=== PATIENT | male | born 1990 | race Caucasian/White ===

== ENCOUNTER 2017-10-16 20:52 | Emergency (ER) | payer OTHER ==
[~2017-10-16] VITALS: Ht 182.9 cm; Wt 99.8 kg
[~2017-10-16 20:52] MED LIST: ACETAMINOPHEN-1 EAC1 PO; AMOXICILLIN 50500 MG PO; CLEOCIN HCL150 MG PO; CYCLOBENZAPRINE5 MG PO; FLEXERIL PO; GENTAMICIN SU3 MG/ML OPHTHALMIC; HYDROCODON-ACE1 EAC7 PO; HYDROCODONE-AP1 EAC6 PO; HYDROCODONE-APA1 TA1 PO; IBUPROFEN 800800 M1 PO; IBUPROFEN 800800 MG PO; LIDOCAINE VISC100 M1 PO; LIDOCAINE VISC100 M1 SWISH&SPIT; LIDOCAINE VISC100 ML SWISH&SPIT; MEDROLDOSEPACK PO; NAPROSYN500 MG PO; NOHOMEMEDICATIONS; NORCO 5-325 TA1 EAC1 PO; NORCO 5-325 TA1 EACH PO; PENICILLIN VK500 MG PO; PREDNISONE 20 M20 MG PO; PREDNISONE50 MG PO; ROBAXIN 750 MG750 M1 PO; ROBAXIN500 MG PO; TORADOL 10 MG T10 MG PO; TYLENOL WITH CO1 TA1 PO
[2017-10-16] MEDS ORDERED: IBUPROFEN 600600 M1 PO (22:27)
[2017-10-16 22:33] VITALS: BP 150/92
== END 2017-10-16 22:34 | disposition home or self-care (01) ==
LOC: M.ERS 20:52
DX: M25.532 Pain in left wrist (principal); Z88.6 Allergy status to analgesic agent

== ENCOUNTER 2017-12-01 10:32 | Emergency (ER) | payer OTHER ==
[~2017-12-01] VITALS: Ht 182.9 cm; Wt 108.9 kg
[~2017-12-01 10:32] MED LIST changes: +IBUPROFEN 600600 M1 PO
[2017-12-01] MEDS ORDERED: BACTRIM DS TAB1 EACH PO (11:38)
[2017-12-01 12:07] VITALS: BP 123/74
== END 2017-12-01 12:09 | disposition home or self-care (01) ==
LOC: M.ERS 10:32
DX: S60.221A Contusion of right hand, initial encounter (principal); L02.511 Cutaneous abscess of right hand; L03.113 Cellulitis of right upper limb; Z88.6 Allergy status to analgesic agent; X58.XXXA Exposure to other specified factors, initial encounter; Y93.89 Activity, other specified; Y92.89 Other specified places as the place of occurrence of the external cause; Y99.8 Other external cause status

== ENCOUNTER 2018-05-21 16:24 | Emergency (ER) | payer OTHER ==
[~2018-05-21] VITALS: Ht 182.9 cm; Wt 104.3 kg
[~2018-05-21 16:24] MED LIST changes: +BACTRIM DS TAB1 EACH PO
[2018-05-21] MEDS ORDERED: ACETAMINOPHEN-1 EAC1 PO (17:19)
[2018-05-21] MEDS ORDERED: LIDOCAINE VISC100 ML SWISH&SPIT (17:19)
[2018-05-21] MEDS ORDERED: AMOXICILLIN 50500 MG PO (17:19)
[2018-05-21 17:25] VITALS: BP 140/75
== END 2018-05-21 17:27 | disposition home or self-care (01) ==
LOC: M.ERS 16:24
DX: K04.7 Periapical abscess without sinus (principal); Z88.8 Allergy status to other drugs, medicaments and biological substances

== ENCOUNTER 2018-07-28 22:16 | Emergency (ER) | payer BC ==
[~2018-07-28] VITALS: Ht 182.9 cm; Wt 104.3 kg
[2018-07-28 22:24] VITALS: BP 140/76
[2018-07-28] MEDS ORDERED: AMOXIL 875 MG875 M1 PO (22:34)
[2018-07-28] MEDS ORDERED: IBUPROFEN 800800 M1 PO (22:38)
== END 2018-07-28 22:43 | disposition home or self-care (01) ==
LOC: M.ERS 22:16
DX: K04.7 Periapical abscess without sinus (principal); Z88.8 Allergy status to other drugs, medicaments and biological substances

== ENCOUNTER 2019-01-11 23:06 | Emergency (ER) | payer OTHER ==
[~2019-01-11] VITALS: Ht 182.9 cm; Wt 104.3 kg
[~2019-01-11 23:06] MED LIST changes: +AMOXIL 875 MG875 M1 PO
[2019-01-11 23:11] VITALS: BP 135/60
[2019-01-11] MEDS ORDERED: PENICILLIN VK500 M1 PO (23:33)
[2019-01-11] MEDS ORDERED: PERIDEX15 ML SWISH&SPIT (23:33)
[2019-01-11] MEDS ORDERED: IBUPROFEN 800800 M1 PO (23:33)
== END 2019-01-11 23:48 | disposition home or self-care (01) ==
LOC: M.ERS 23:06
DX: K05.10 Chronic gingivitis, plaque induced (principal); K08.9 Disorder of teeth and supporting structures, unspecified; Z88.6 Allergy status to analgesic agent

== ENCOUNTER 2019-04-10 02:06 | Emergency (ER) | payer OTHER ==
[~2019-04-10] VITALS: Ht 182.9 cm; Wt 99.8 kg
[~2019-04-10 02:06] MED LIST changes: +PENICILLIN VK500 M1 PO; +PERIDEX15 ML SWISH&SPIT
[2019-04-10 02:50] LABS: URINE BILIRUBIN NEGATIVE (Negative); URINE BLOOD TRACE (Negative); URINE CLARITY CLEAR; URINE COLOR YELLOW; URINE GLUCOSE-RANDOM NEGATIVE (Negative); URINE KETONES NEGATIVE (Negative); URINE LEUKOCYTES-REFLEX NEGATIVE (Negative); URINE NITRITE-REFLEX NEGATIVE (Negative); URINE PROTEIN NEGATIVE (Negative); URINE SPECIFIC GRAVITY 1.025 (1.005-1.030); URINE UROBILINOGEN 0.2 E.U./dl (0.2-1.0)
[2019-04-10] MEDS ORDERED: FLEXERIL PO (05:02)
[2019-04-10] MEDS ORDERED: CIPROFLOXACIN500 M1 PO (05:02)
[2019-04-10 05:17] VITALS: BP 139/67
== END 2019-04-10 05:20 | disposition home or self-care (01) ==
LOC: M.ERS 02:06
PROVIDERS: Emergency Medicine
DX: M54.5 Low back pain (principal); R31.9 Hematuria, unspecified; Z88.6 Allergy status to analgesic agent

== ENCOUNTER 2019-11-07 02:55 | Emergency (ER) | payer OTHER ==
[~2019-11-07] VITALS: Ht 182.9 cm; Wt 81.7 kg
[~2019-11-07 02:55] MED LIST changes: +CIPROFLOXACIN500 M1 PO
[2019-11-07] MEDS ORDERED: IBUPROFEN 800800 M1 PO (03:21)
[2019-11-07] MEDS ORDERED: PENICILLIN VK500 MG PO (03:21)
[2019-11-07 03:38] VITALS: BP 136/80
== END 2019-11-07 03:38 | disposition home or self-care (01) ==
LOC: M.ERS 02:55
DX: K08.89 Other specified disorders of teeth and supporting structures (principal); Z88.6 Allergy status to analgesic agent

== ENCOUNTER 2020-02-25 21:51 | Emergency (ER) | payer OTHER ==
[~2020-02-25] VITALS: Ht 182.9 cm; Wt 80.3 kg
[2020-02-25 23:46] LABS: URINE BILIRUBIN NEGATIVE (Negative); URINE BLOOD NEGATIVE (Negative); URINE CLARITY CLEAR; URINE COLOR YELLOW; URINE GLUCOSE-RANDOM NEGATIVE (Negative); URINE KETONES NEGATIVE (Negative); URINE LEUKOCYTES-REFLEX NEGATIVE (Negative); URINE NITRITE-REFLEX NEGATIVE (Negative); URINE PROTEIN NEGATIVE (Negative); URINE SPECIFIC GRAVITY 1.015 (1.005-1.030); URINE UROBILINOGEN 0.2 E.U./dl (0.2-1.0)
[2020-02-26] MEDS ORDERED: APAP W/CODEINE1 TA2 PO (00:16)
[2020-02-26 00:20] VITALS: BP 124/81
== END 2020-02-26 00:22 | disposition home or self-care (01) ==
LOC: M.ERS 21:51
PROVIDERS: Emergency Medicine
DX: S20.211A Contusion of right front wall of thorax, initial encounter (principal); Z98.890 Other specified postprocedural states; Z88.8 Allergy status to other drugs, medicaments and biological substances; W17.89XA Other fall from one level to another, initial encounter; Y93.89 Activity, other specified; Y92.89 Other specified places as the place of occurrence of the external cause; Y99.8 Other external cause status

== ENCOUNTER 2020-09-05 10:12 | Emergency (ER) | payer OTHER ==
[~2020-09-05] VITALS: Ht 190.5 cm; Wt 83.0 kg
[~2020-09-05 10:12] MED LIST changes: +APAP W/CODEINE1 TA2 PO
[2020-09-05 10:20] VITALS: BP 123/71
[2020-09-05] MEDS ORDERED: PENICILLIN VK500 M1 PO (10:23)
[2020-09-05] MEDS ORDERED: HYDROCODON-ACE1 EAC7 PO (10:23)
== END 2020-09-05 10:31 | disposition home or self-care (01) ==
LOC: M.ERS 10:12
DX: K08.89 Other specified disorders of teeth and supporting structures (principal); Z88.6 Allergy status to analgesic agent

== ENCOUNTER 2020-10-13 03:20 | Emergency (ER) | payer OTHER ==
[~2020-10-13] VITALS: Ht 182.9 cm; Wt 81.7 kg
[2020-10-13] MEDS ORDERED: NAPROSYN500 MG PO (05:24)
[2020-10-13] MEDS ORDERED: ACETAMINOPHEN-1 EAC2 PO (05:24)
[2020-10-13 05:34] VITALS: BP 145/70
== END 2020-10-13 05:34 | disposition home or self-care (01) ==
LOC: M.ERS 03:20
DX: S62.91XA Unspecified fracture of right hand, initial encounter for closed fracture (principal); Z88.6 Allergy status to analgesic agent; W22.8XXA Striking against or struck by other objects, initial encounter; Y93.89 Activity, other specified; Y92.89 Other specified places as the place of occurrence of the external cause; Y99.8 Other external cause status